=== PATIENT | male | born 1960 | race Two or more races ===

== ENCOUNTER → 2021-06-26 | Emergency (ER) | payer SELFPAY ==
[~2021-06-26] VITALS: Ht 165.1 cm; Wt 88.6 kg
[~2021-06-26] MED LIST: DIPHTH,PERTUSS(ACELL),TET TOX 0.5 ML DISP.SYRIN. VAX IM ONE; LIDOCAINE 1% Multi-Dose 20 ML VIAL. ONE; MORPHINE SULFATE 4 MG/ML INJ. IM ONE
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
[2021-06-26 13:34] LABS: BASO % 0 % (0-3); EOS % 0 % (0-3); HEMATOCRIT 44.1 % (39.0-53.0); HEMOGLOBIN 15.2 g/dL (13.0-17.5); LYMPH # 1.8 x10^3/uL (1.0-4.8); LYMPH % 12 % (24-48); MEAN CORPUSCULAR HEMOGLOBIN 31 pg (25-35); MEAN CORPUSCULAR HGB CONC 35 g/dL (31-37); MEAN CORPUSCULAR VOLUME 90 fL (79-100); MONO # 0.7 x10^3/uL (0.0-1.1); MONO % 5 % (0-9); NEUT # 11.9 x10^3/uL (1.8-7.7); NEUT % 82 % (31-73); PLATELET COUNT 171 x10^3/uL (140-400); RED CELL DISTRIBUTION WIDTH 12.3 % (11.5-14.5); WHITE BLOOD COUNT 14.5 x10^3/uL (4.0-11.0)
[2021-06-26 13:45] LABS: CALCIUM 8.9 mg/dL (8.5-10.1); CREATININE 0.9 mg/dL (0.7-1.3); GFR 85.2; POTASSIUM 3.8 mmol/L (3.5-5.1)
[2021-06-26 13:52] LABS: ALBUMIN 3.5 g/dL (3.4-5.0); ALBUMIN/GLOBULIN RATIO 0.8 (1.0-1.7); TOTAL BILIRUBIN 0.6 mg/dL (0.2-1.0); TOTAL PROTEIN 7.9 g/dL (6.4-8.2)
[2021-06-26 14:09] VITALS: BP 173/81
== END | disposition short-term general hospital (02) ==
LOC: ER 11:53
DX: S01.01XA Laceration without foreign body of scalp, initial encounter (principal); S06.5X9A Traumatic subdural hemorrhage with loss of consciousness of unspecified duration, initial encounter; S06.6X9A Traumatic subarachnoid hemorrhage with loss of consciousness of unspecified duration, initial encounter; Y08.02XA Assault by strike by baseball bat, initial encounter; Y93.89 Activity, other specified; Y92.89 Other specified places as the place of occurrence of the external cause; Y99.8 Other external cause status
CPT/HCPCS: 12005; 36415; 70450; 70486; 72125; 80053; 85025; 85610; 86850; 86900; 86901; 90471; 90715; 96372; 99285; J2270

== ENCOUNTER 2021-07-23 14:11 | Emergency (ER) | payer SELFPAY ==
[~2021-07-23] VITALS: Ht 165.1 cm; Wt 86.0 kg
[2021-07-23 14:26] VITALS: BP 118/72
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
== END 2021-07-23 14:41 | disposition home or self-care (01) ==
LOC: ER 14:11
DX: S01.01XD Laceration without foreign body of scalp, subsequent encounter (principal); X58.XXXD Exposure to other specified factors, subsequent encounter
CPT/HCPCS: 99282

== ENCOUNTER 2021-07-26 15:47 | Emergency (ER) | payer SELFPAY ==
[~2021-07-26] VITALS: Ht 165.1 cm; Wt 81.8 kg
[2021-07-26 15:49] VITALS: BP 125/66
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
== END 2021-07-26 16:14 | disposition home or self-care (01) ==
LOC: ER 15:47
DX: S01.01XD Laceration without foreign body of scalp, subsequent encounter (principal); X58.XXXD Exposure to other specified factors, subsequent encounter
CPT/HCPCS: 99281